=== PATIENT | male | born 1950 | race African-American/Black ===

== ENCOUNTER 2016-05-23 15:43 | Emergency (ER) | payer MEDICARE, MEDICAID ==
[~2016-05-23] VITALS: Ht 177.8 cm; Wt 104.0 kg
[~2016-05-23 15:43] MED LIST: CLONIDINE0.1 MG PO; NAPROSYN500 MG PO
[2016-05-23 16:44] LABS: IMMATURE GRANULOCYTES 0.4 % (0.0-1.0); MEAN CELL VOLUME 88.4 fL CALC (80.0-100.0); MEAN CORPUSCULAR HGB 29.5 pG CALC (26.0-32.0); MEAN CORPUSCULAR HGB CONC 33.3 g/L CALC (32.0-36.0); NEUT# 3.31 thou/uL (1.82-7.42); RED BLOOD COUNT 5.09 mill/uL (4.70-6.10); RED CELL DISTRI WIDTH 13.9 % (11.5-15.5)
[2016-05-23 16:58] LABS: ALBUMIN 4.3 g/dL (3.2-5.0); ALKALINE PHOSPHATASE 67 u/l (38-126); ANION GAP 15 (6-22 (CALC)); BILIRUBIN, TOTAL 0.7 mg/dL (0.0-1.4); BUN 11 mg/dL (8-23); BUN/CREATININE RATIO 10 (12-20 (CALC)); CALCIUM 9.9 mg/dL (8.4-10.2); CARBON DIOXIDE 25 mmol/l (22-30); CHLORIDE 105 mmol/l (95-108); CREATININE 1.1 mg/dL (0.7-1.3); GFR > 60 ML/MIN (>=60 (CALC)); GFR FOR AFR.AMER. > 60 ML/MIN (>=60 (CALC)); GLUCOSE 101 mg/dL (82-115); SGOT/AST 30 u/l (19-48); SGPT/ALT 31 u/l (11-66); SODIUM 141 mmol/l (137-146)
[2016-05-23 17:09] LABS: MYOGLOBIN 85 ng/mL (0 - 121)
[2016-05-23 18:32] LABS: URINE BILIRUBIN - DIPSTICK NEGATIVE (NEGATIVE); URINE BLOOD DIPSTICK NEGATIVE (NEGATIVE); URINE CLARITY CLEAR; URINE COLOR YELLOW; URINE GLUCOSE - DIPSTICK NEGATIVE (NEGATIVE); URINE KETONE NEGATIVE (NEGATIVE); URINE LEUK ESTERASE NEGATIVE (NEGATIVE); URINE NITRITE - DIPSTICK NEGATIVE (Negative); URINE PH 5.5 (4.5-8.0); URINE PROTEIN - DIPSTICK NEGATIVE (NEG-TRACE); URINE SPECIFIC GRAVITY 1.015; URINE UROBILINOGEN - DIPSTICK 0.2 E.U./dL (0.2)
[2016-05-23 18:38] LABS: BARBITURATES NEGATIVE (NEGATIVE); COCAINE NEGATIVE (NEGATIVE); METHADONE NEGATIVE (NEGATIVE); OXCYCODONE NEGATIVE (NEGATIVE); TETRAHYDROCANNABIONOL NEGATIVE (NEGATIVE); TRICYLIC ANTIDEPRESSANTS NEGATIVE (NEGATIVE)
[2016-05-23] MEDS ORDERED: CLONIDINE0.1 MG PO (18:52)
[2016-05-23 19:08] VITALS: BP 175/98
== END 2016-05-23 19:21 | disposition home or self-care (01) ==
LOC: ED 15:43
PROVIDERS: Emergency Medicine
DX: I10 Essential (primary) hypertension (principal); F17.210 Nicotine dependence, cigarettes, uncomplicated; R94.31 Abnormal electrocardiogram [ECG] [EKG]; R42 Dizziness and giddiness; R20.0 Anesthesia of skin; Z91.14 Patient's other noncompliance with medication regimen

== ENCOUNTER 2016-06-08 18:56 | Inpatient (IN) | payer MEDICARE, MEDICAID ==
[~2016-06-08] VITALS: Ht 177.8 cm; Wt 84.7 kg
[2016-06-08 19:47] LABS: HEMATOCRIT 46.5 % (39.0-50.0); HEMOGLOBIN 15.5 g/dl (14.0-18.0); IMMATURE GRANULOCYTES 0.2 % (0.0-1.0); MEAN CELL VOLUME 89.1 fL CALC (80.0-100.0); MEAN CORPUSCULAR HGB 29.7 pG CALC (26.0-32.0); MEAN CORPUSCULAR HGB CONC 33.3 g/L CALC (32.0-36.0); NEUT# 5.71 thou/uL (1.82-7.42); RED BLOOD COUNT 5.22 mill/uL (4.70-6.10); RED CELL DISTRI WIDTH 13.4 % (11.5-15.5)
[2016-06-08 19:52] LABS: ALBUMIN 4.4 g/dL (3.2-5.0); ALKALINE PHOSPHATASE 84 u/l (38-126); ANION GAP 17 (6-22 (CALC)); BILIRUBIN, TOTAL 1.1 mg/dL (0.0-1.4); BUN 13 mg/dL (8-23); BUN/CREATININE RATIO 11 (12-20 (CALC)); CALCIUM 10.1 mg/dL (8.4-10.2); CARBON DIOXIDE 25 mmol/l (22-30); CHLORIDE 103 mmol/l (95-108); CREATININE 1.2 mg/dL (0.7-1.3); GFR > 60 ML/MIN (>=60 (CALC)); GFR FOR AFR.AMER. > 60 ML/MIN (>=60 (CALC)); GLUCOSE 107 mg/dL (82-115); SGOT/AST 25 u/l (19-48); SGPT/ALT 37 u/l (11-66); SODIUM 140 mmol/l (137-146); TOTAL PROTEIN 8.3 g/dL (6.3-8.2)
[2016-06-08 20:03] LABS: MYOGLOBIN 84 ng/mL (0 - 121)
[2016-06-08 20:36] LABS: URINE BILIRUBIN - DIPSTICK NEGATIVE (NEGATIVE); URINE BLOOD DIPSTICK NEGATIVE (NEGATIVE); URINE CLARITY CLEAR; URINE COLOR YELLOW; URINE GLUCOSE - DIPSTICK NEGATIVE (NEGATIVE); URINE KETONE NEGATIVE (NEGATIVE); URINE LEUK ESTERASE NEGATIVE (NEGATIVE); URINE NITRITE - DIPSTICK NEGATIVE (Negative); URINE PROTEIN - DIPSTICK NEGATIVE (NEG-TRACE); URINE UROBILINOGEN - DIPSTICK 0.2 E.U./dL (0.2)
[2016-06-08 21:04] LABS: BARBITURATES NEGATIVE (NEGATIVE); COCAINE NEGATIVE (NEGATIVE); METHADONE NEGATIVE (NEGATIVE); OXCYCODONE NEGATIVE (NEGATIVE); TETRAHYDROCANNABIONOL NEGATIVE (NEGATIVE); TRICYLIC ANTIDEPRESSANTS NEGATIVE (NEGATIVE)
[2016-06-08 23:05] VITALS: BP 173/89
[2016-06-09 02:33] VITALS: BP 135/83
[2016-06-09 03:55] VITALS: BP 172/88
[2016-06-09 10:14] VITALS: BP 166/81
[2016-06-09 16:15] VITALS: BP 143/101
[2016-06-09 19:00] VITALS: BP 148/98
[2016-06-09 23:48] VITALS: BP 130/88
[2016-06-10 04:35] VITALS: BP 127/81
[2016-06-10 07:30] VITALS: BP 135/93
[2016-06-10 11:01] VITALS: BP 131/92
[2016-06-10] MEDS ORDERED: CLONIDINE0.1 MG PO (11:08)
[2016-06-10] MEDS ORDERED: HYZAAR1 TA2 PO ×2 (11:10→12:53)
[2016-06-10] MEDS ORDERED: LIPITOR20 M1 PO (11:11)
[2016-06-10] MEDS ORDERED: AMLODIPINE5 MG PO (11:12)
[2016-06-10] MEDS ORDERED: ADLT ASA LOW81 MG PO (11:47)
== END 2016-06-10 12:25 | disposition home or self-care (01) | DRG 69 ==
LOC: ENPENDDIS → ED 18:56 → ED-I 21:40 → ED 22:05 → MS2 22:06
PROVIDERS: Emergency Medicine; ADMIT Internal Medicine; ATTEND Internal Medicine
DX: G45.9 Transient cerebral ischemic attack, unspecified (principal); I10 Essential (primary) hypertension; I16.0 Hypertensive urgency; Z87.891 Personal history of nicotine dependence; Z91.14 Patient's other noncompliance with medication regimen
CPT/HCPCS: J1650

== ENCOUNTER 2018-06-21 11:42 | Emergency (ER) | payer MEDICARE, MEDICAID ==
[~2018-06-21] VITALS: Ht 177.8 cm; Wt 85.0 kg
[~2018-06-21 11:42] MED LIST changes: +ADLT ASA LOW81 MG PO; +AMLODIPINE5 MG PO; +HYZAAR1 TA2 PO; +LIPITOR20 M1 PO
[2018-06-21 13:10] VITALS: BP 141/100
== END 2018-06-21 13:08 | disposition home or self-care (01) ==
LOC: ED 11:42
DX: S50.02XA Contusion of left elbow, initial encounter (principal); S50.312A Abrasion of left elbow, initial encounter; V13.4XXA Pedal cycle driver injured in collision with car, pick-up truck or van in traffic accident, initial encounter; Y93.55 Activity, bike riding; Y92.410 Unspecified street and highway as the place of occurrence of the external cause

== ENCOUNTER 2018-06-29 13:14 | Emergency (ER) | payer MEDICARE, MEDICAID ==
[~2018-06-29] VITALS: Ht 177.8 cm; Wt 75.0 kg
[2018-06-29 14:16] LABS: HEMATOCRIT 43.7 % (39.0-50.0); HEMOGLOBIN 14.4 g/dl (14.0-18.0); IMMATURE GRANULOCYTES 0.3 % (0.0-5.0); MEAN CORPUSCULAR HGB 30.3 pG CALC (26.0-32.0); NEUT# 5.03 thou/uL (1.82-7.42); RED BLOOD COUNT 4.75 mill/uL (4.70-6.10); RED CELL DISTRI WIDTH 14.7 % (11.5-15.5)
[2018-06-29 14:25] LABS: URINE BLOOD DIPSTICK NEGATIVE (NEGATIVE); URINE COLOR YELLOW; URINE GLUCOSE - DIPSTICK NEGATIVE (NEGATIVE); URINE KETONE NEGATIVE (NEGATIVE); URINE LEUK ESTERASE NEGATIVE (NEGATIVE); URINE NITRITE - DIPSTICK NEGATIVE (Negative); URINE PH 5.5 (4.5-8.0); URINE PROTEIN - DIPSTICK TRACE mg/dL (NEG-TRACE); URINE SPECIFIC GRAVITY >=1.030
[2018-06-29 14:28] LABS: BARBITURATES NEGATIVE (NEGATIVE); COCAINE NEGATIVE (NEGATIVE); METHADONE NEGATIVE (NEGATIVE); OXCYCODONE NEGATIVE (NEGATIVE); TETRAHYDROCANNABIONOL NEGATIVE (NEGATIVE); TRICYLIC ANTIDEPRESSANTS NEGATIVE (NEGATIVE); URINE BILIRUBIN - DIPSTICK NEGATIVE (NEGATIVE)
[2018-06-29 14:35] LABS: ALKALINE PHOSPHATASE 63 u/l (38-126); ANION GAP 12 (6-22 (CALC)); BUN 17 mg/dL (8-23); BUN/CREATININE RATIO 19 (12-20 (CALC)); CARBON DIOXIDE 26 mmol/l (22-30); CHLORIDE 105 mmol/l (95-108); CREATININE 0.9 mg/dL (0.7-1.3); GFR > 60 ML/MIN (>=60 (CALC)); GFR FOR AFR.AMER. > 60 ML/MIN (>=60 (CALC)); LIPASE 66 u/l (23-300); SODIUM 139 mmol/l (137-146); TOTAL PROTEIN 7.2 g/dL (6.3-8.2)
[2018-06-29 14:38] LABS: ETHYL ALCOHOL 0 mg/dl (0-30); SGOT/AST 58 u/l (19-48)
[2018-06-29 15:05] LABS: TSH, 3RD GENERATION 2.28 uIU/mL (0.47 - 4.68)
[2018-06-29 16:44] VITALS: BP 141/81
== END 2018-06-29 16:55 | disposition home or self-care (01) ==
LOC: ED 13:14
PROVIDERS: Emergency Medicine
DX: R44.0 Auditory hallucinations (principal); I10 Essential (primary) hypertension; E78.5 Hyperlipidemia, unspecified; F17.210 Nicotine dependence, cigarettes, uncomplicated; Z86.73 Personal history of transient ischemic attack (TIA), and cerebral infarction without residual deficits; R41.82 Altered mental status, unspecified

== ENCOUNTER 2018-07-06 13:36 | Inpatient (IN) | payer MEDICARE, MEDICAID ==
[2018-07-06] VITALS (7 sets, daily range): BP systolic 144–178; BP diastolic 63–99
[~2018-07-06] VITALS: Ht 172.7 cm; Wt 85.0 kg
--- NOTE | 2018-07-06 13:40 | NUR ---
PT TO ROOM WITH A LIMPING GAIT.
--- NOTE | 2018-07-06 14:00 | NUR ---
PER DR HARRIS HELD LOVENOX AND PO MED PT MAY BE SURGICAL CANDIDATE.
--- NOTE | 2018-07-06 14:13 | NUR ---
PT TRANSFERED TO ROOM 14 FOR FURTHER TX, CARE ASSUMED. PT ALERT AND CONVERSIVE IN NO DISTRESS. ALL MONITORS ASSESSED. SKIN WARMA ND DRY.
[2018-07-06 14:25] LABS: HEMATOCRIT 42.1 % (39.0-50.0); HEMOGLOBIN 13.6 g/dl (14.0-18.0); IMMATURE GRANULOCYTES 0.3 % (0.0-5.0); MEAN CELL VOLUME 92.3 fL CALC (80.0-100.0); MEAN CORPUSCULAR HGB 29.8 pG CALC (26.0-32.0); MEAN CORPUSCULAR HGB CONC 32.3 g/L CALC (32.0-36.0); NEUT# 4.04 thou/uL (1.82-7.42); RED BLOOD COUNT 4.56 mill/uL (4.70-6.10); RED CELL DISTRI WIDTH 14.5 % (11.5-15.5)
[2018-07-06 14:47] LABS: ALBUMIN 3.7 g/dL (3.2-5.0); ALKALINE PHOSPHATASE 74 u/l (38-126); ANION GAP 12 (6-22 (CALC)); BUN 16 mg/dL (8-23); BUN/CREATININE RATIO 16 (12-20 (CALC)); CARBON DIOXIDE 24 mmol/l (22-30); CHLORIDE 108 mmol/l (95-108); GFR > 60 ML/MIN (>=60 (CALC)); GFR FOR AFR.AMER. > 60 ML/MIN (>=60 (CALC)); POTASSIUM 4.3 mmol/l (3.5-5.1); SGOT/AST 31 u/l (19-48); SODIUM 140 mmol/l (137-146); TOTAL PROTEIN 7.1 g/dL (6.3-8.2)
[2018-07-06 14:53] LABS: BILIRUBIN, TOTAL 0.5 mg/dL (0.0-1.4)
--- NOTE | 2018-07-06 14:59 | NUR ---
ALL METAL REMOVED FROM PT AND TRANSPORTED TO MRI BY
--- NOTE | 2018-07-06 15:00 | NUR ---
PER DR KIMBERLY ROMERO SQ AND PO PROTONIX HELD D/T POSSIBLE SURGICAL CANDIDATE
--- NOTE | 2018-07-06 15:40 | NUR ---
PT RETURNED FROM MRI IN NO DISTRESS.MONITORS REASSESSED
--- NOTE | 2018-07-06 16:05 | NUR ---
DR BRASHER AT BEDSIDE TO ASSESS PT. DISCUSSED POC AND SURGERY WITH PT. PT AGREEABLE. MARKED PEDAL PULSE TO DORSUM LT FOOT.
--- NOTE | 2018-07-06 16:52 | NUR ---
BEDSIDE REPORT TO LIV HICKEY FROM OR. PT TRANSFERED SELF TO STRETCHER WITHOUT DIFFICULTY. PT LEFT WITH IV FLUIDS AND ABT INFUSING IN CARE OF OR STAFF
[2018-07-06 17:08] LABS: BARBITURATES NEGATIVE (NEGATIVE); COCAINE NEGATIVE (NEGATIVE); METHADONE NEGATIVE (NEGATIVE); OXCYCODONE NEGATIVE (NEGATIVE); TETRAHYDROCANNABIONOL NEGATIVE (NEGATIVE); TRICYLIC ANTIDEPRESSANTS NEGATIVE (NEGATIVE)
--- NOTE | 2018-07-06 17:10 | NUR ---
HELD LOVENOX AND PO MED PER DR HARRIS D/T POSSIBLE PENDING SURGERY
--- NOTE | 2018-07-06 17:20 | NUR ---
CALLED REPORT TO [facility]SHBY MS AND INFORMED OF TRANSPORT TO SURGERY AND FACT THAT LOVENOX AND PO MEDS WERE HELD PER DR HARRIS.
--- NOTE | 2018-07-06 18:26 | NUR ---
PT ARRIVED TO FLOOR VIA STRETCHER ACCOMPANIED BY OR STAFF MEMBER;PT RE-POSITIONED INTO HOSPITAL BED WITH 1 PERSON ASSIST;A&O X3, ORIENTED TO ROOM AND CALL LIGHT SYSTEM;PT IS A POST OP LEFT FOOT THIRD TOE AMPUTEE BY ;PT EDUCATED ON NON-WEIGHT BEARING STATUS AND VERBALIZES UNDERSTANDING;PT DENIES ANY PAIN OR NEEDS,PAIN SCALE AND REPORTING EDUCATED;RESPIRATIONS EVEN AND UNLABORED ON RA;IV FLUIDS INFUSING WELL TO #18G TO LAC PER ORDER;PT DENIES ANY ADDITIONAL NEEDS AT THIS TIME;ENCOURAGED PT TO CALL FOR ASSISTANCE IF NEEDED;FALL PRECAUTIONS IN PLACE WITH CALL LIGHT IN REACH;WILL CONTINUE TO MONITOR
--- NOTE | 2018-07-06 19:49 | NUR ---
ADMISSION ASSESSMENT COMPLETED; SURGICAL DRESSING INTACT TO LEFT FOOT WITH MANDEEP WRAP IN PLACE UNABLE TO PALPATE PEDAL PULSE; POPLITEAL PULSE PRESENT. SCD APPLIED TO RLE. PT. EDUCATED ON NEED TO CALL FOR ALL OOB NEEDS AND THAT HE IS NWB AND WILL NEED TO CALL; VERBALIZES UNDERSTANDING. EDUCATED ON POC AND INCENTIVE SPIROMETER; C/O BURNING PAIN TO LEFT FOOT 5/10 AND PT. REPORTS TEETH HURT AND IS MEDICATED WITH ORDERED TRAMADOL; WILL REASSESS. PT. IS ABLE TO PULL 1000 AND GOAL IS SET TO 1500. ENCOURAGED TO CALL FOR ANY NEEDS. CALL LIGHT IS IN REACH.
--- NOTE | 2018-07-06 22:00 | NUR ---
PT. RESTING IN BED WITH NO DISTRESS NOTED; DENIES NEEDS OR PAIN MEDICATION AT THIS TIME. SNACK PROVIDED. IV SITE PATENT. LEFT FOOT DRESSING REMAINS CDI AND EXTREMETY WARM TO TOUCH WITH GOOD CAPILARRY REFILL NOTED. URINAL AT BEDSIDE. CALL LIGHT IS IN REACH.
--- NOTE | 2018-07-06 23:35 | NUR ---
PT. C/O TEETH AND LEFT FOOT PAIN 10/10 AND MEDICATED WITH ORDERED PERCOCET; WILL REASSESS. PT. DENIES FURTHER NEEDS. PO FLUIDS OFFERED. CALL LIGHT IS IN REACH.
[2018-07-07] VITALS (7 sets, daily range): BP systolic 131–182; BP diastolic 76–89
--- NOTE | 2018-07-07 01:55 | NUR ---
PT. RESTING IN BED WITH NO DISTRESS NOTED; DENIES NEEDS/PAIN. DRESSING REMAINS CDI TO LEFT FOOT AND CAP REFILL BRISK AND PT. IS ABLE TO MOVE TOES TO LEFT FOOT. ENCOURAGED TO CALL FOR ANY NEEDS. CALL LIGHT IS IN REACH. WILL CONTINUE TO MONITOR.
--- NOTE | 2018-07-07 04:29 | NUR ---
PT. C/O LEFT FOOT BURNING PAIN 10/10 AND MEDICATED WITH ORDERED PERCOCET; WILL REASSESS; PO FLUIDS OFFERED. CALL LIGHT IS IN REACH. WILL CONTINUE TO MONITOR.
[2018-07-07 04:59] LABS: HEMATOCRIT 38.9 % (39.0-50.0); HEMOGLOBIN 12.8 g/dl (14.0-18.0); IMMATURE GRANULOCYTES 0.4 % (0.0-5.0); MEAN CELL VOLUME 92.2 fL CALC (80.0-100.0); MEAN CORPUSCULAR HGB 30.3 pG CALC (26.0-32.0); MEAN CORPUSCULAR HGB CONC 32.9 g/L CALC (32.0-36.0); NEUT# 4.76 thou/uL (1.82-7.42); RED BLOOD COUNT 4.22 mill/uL (4.70-6.10); RED CELL DISTRI WIDTH 14.5 % (11.5-15.5)
[2018-07-07 05:12] LABS: ALKALINE PHOSPHATASE 63 u/l (38-126); AMYLASE 59 u/l (30-110); ANION GAP 11 (6-22 (CALC)); BILIRUBIN, TOTAL 0.4 mg/dL (0.0-1.4); BUN 10 mg/dL (8-23); BUN/CREATININE RATIO 11 (12-20 (CALC)); CARBON DIOXIDE 23 mmol/l (22-30); CHLORIDE 108 mmol/l (95-108); CREATININE 0.9 mg/dL (0.7-1.3); GFR > 60 ML/MIN (>=60 (CALC)); GFR FOR AFR.AMER. > 60 ML/MIN (>=60 (CALC)); LIPASE 30 u/l (23-300); MAGNESIUM 2.1 mg/dL (1.6-2.3); POTASSIUM 4.1 mmol/l (3.5-5.1); SGOT/AST 20 u/l (19-48); SODIUM 138 mmol/l (137-146)
--- NOTE | 2018-07-07 05:35 | NUR ---
PT. REPORTS PAIN IS NOW 8/10, MEDICATED WITH ORDERED PRN DILAUDID AND B/P REASSESSED AND NOW DOWN TO 131/83. DENIES FURTHER NEEDS. CALL LIGHT IS IN REACH. DRESSING TO LEFT FOOT REMAINS CDI.
--- NOTE | 2018-07-07 06:10 | NUR ---
IV SITE PATENT AND SL. FLUSHED WITH NS. PT. REPORTS PAIN DOWN TO 2/10.
--- NOTE | 2018-07-07 07:35 | NUR ---
ASSESSMENT IS COMPLETED: IV SITE IS FREE FROM REDNESS OR EDEMA. HR IS REG,PULSES ARE STRONG X4, ABD IS SOFT WITH ACTIVE BS. BREATH SOUNDS ARE CLEAR, BILATERALLY. LEFT FOOT HAS A DRESSING THAT IS CDI. NO DRAINAGE NOTED. CONTINUE TO OSBERVE AND MONITOR.
--- NOTE | 2018-07-07 08:05 | NUR ---
PLACED A CALL TO . PT IS VOMITING NO MEDICATION ORDERED AT THIS TIME.
--- NOTE | 2018-07-07 09:00 | NUR ---
RECEIVED A CALL FROM DR. MTZ NEW ORDERS FOR NAUSEA MEDICATION
--- NOTE | 2018-07-07 12:15 | NUR ---
PT IS RELAXING IN BED WITH NO DISTRESS NOTED. IV SITE IS FREE FROM REDNESS OR EDEMA.
--- NOTE | 2018-07-07 13:15 | NUR ---
BP NOW 123/69
--- NOTE | 2018-07-07 13:40 | NUR ---
CARE RELINQUISHED FROM DAYANARA REDDY;INTRODUCED SELF TO PT AND POC DISCUSSED;PT RESTING IN SEMI FOWLERS POSITION;RESPIRATIONS EVEN AND UNLABORED ON RA;IV FLUIDS INFUSING TO LAC WITH EASE;PT DENIES ANY CURRENT PAIN OR NEEDS;ENCOURAGED TO CALL FOR ASSISTANCE IF NEEDED;CALL LIGHT IN REACH;WILL CONTINUE TO MONITOR
--- NOTE | 2018-07-07 15:30 | NUR ---
PT RESTING IN SEMI FOWLERS POSITION WATCHING TV;RESPIRATIONS EVEN AND UNLABORED ON RA;PT DENIES ANY CURRENT PAIN OR DISCOMFORTS;DRESSING TO LEFT FOOT REMAINS CDI;ENCOURAGED ELEVATION ON A PILLOW AND ICE PACK PROVIDED;IV SITE TO LAC PATENT;DIET SODA PROVIDED PER REQUEST;PT DENIES ANY ADDITIONAL NEEDS AT THIS TIME AND IS ENCOURAGED TO CALL FOR ASSISTANCE IF NEEDED;FALL PRECAUTIONS IN PLACE WITH CALL LIGHT IN REACH;WILL CONTINUE TO MONITOR
--- NOTE | 2018-07-07 18:50 | NUR ---
REPORT FROM NATALIIA NICHOLE. PT SITTING UP AT BEDSIDE. PT DENIES ANY PAIN OR DISCOMFORT. NO DISTRESS NOTED. DRESSING NOTED TO LEFT FOOT CDI. IV SITE APPEARS HEALTHY. DISCUSSED POC. PT VERBALIZED UNDERSTANDING. CALL LIGHT WITHIN REACH. WILL CONTINUE TO MONITOR.
--- NOTE | 2018-07-07 21:51 | NUR ---
PT RESTING IN BED. LEFT FOOT ELEVATED ON PILLOWS. STATES PAIN LEVEL DOWN TO 8/10 AFTER PO PAIN MEDICATION. CALL LIGHT WITHIN REACH. WILL CONTINUE TO MONITOR.
[2018-07-08] VITALS (9 sets, daily range): BP systolic 143–165; BP diastolic 64–100
--- NOTE | 2018-07-08 00:10 | NUR ---
IV ABT INFUSING PT TOLERATING WELL. NO S/S OF ADVERSE REACTION NOTED. PT MEDICATED FOR PAIN AT THIS TIME. CALL LIGHT WITHIN REACH. WILL CONTINUE TO MONITOR.
--- NOTE | 2018-07-08 04:54 | NUR ---
PT RESTING IN BED WITH EYES CLOSED. NO S/S OF PAIN OR DISCOMFORT NOTED. CALL LIGHT WITHIN REACH. WILL CONTINUE TO MONITOR.
[2018-07-08 05:17] LABS: HEMATOCRIT 39.6 % (39.0-50.0); IMMATURE GRANULOCYTES 0.2 % (0.0-5.0); MEAN CELL VOLUME 91.7 fL CALC (80.0-100.0); MEAN CORPUSCULAR HGB 30.1 pG CALC (26.0-32.0); MEAN CORPUSCULAR HGB CONC 32.8 g/L CALC (32.0-36.0); NEUT# 4.08 thou/uL (1.82-7.42); RED BLOOD COUNT 4.32 mill/uL (4.70-6.10); RED CELL DISTRI WIDTH 14.5 % (11.5-15.5)
[2018-07-08 05:19] LABS: ALBUMIN 2.9 g/dL (3.2-5.0); ALKALINE PHOSPHATASE 59 u/l (38-126); ANION GAP 11 (6-22 (CALC)); BILIRUBIN, TOTAL 0.4 mg/dL (0.0-1.4); BUN 9 mg/dL (8-23); BUN/CREATININE RATIO 9 (12-20 (CALC)); CARBON DIOXIDE 24 mmol/l (22-30); CHLORIDE 108 mmol/l (95-108); GFR > 60 ML/MIN (>=60 (CALC)); GFR FOR AFR.AMER. > 60 ML/MIN (>=60 (CALC)); MAGNESIUM 2.2 mg/dL (1.6-2.3); SGOT/AST 16 u/l (19-48); SODIUM 139 mmol/l (137-146); TOTAL PROTEIN 5.9 g/dL (6.3-8.2)
--- NOTE | 2018-07-08 07:15 | NUR ---
REPORT RECEIVED FROM DAYANARA CAPONE;PT RESTING IN SEMI FOWLERS POSITION;INTRODUCED SELF TO PT AND POC DISCUSSED;RESPIRATIONS EVEN AND UNLABORED ON RA;PT DENIES ANY CURRENT PAIN OR NEEDS;ENCOURAGED TO KEEP LEFT FOOT ELEVATED ON A PILLOW;FALL PRECAUTIONS IN PLACE WITH CALL LIGHT IN REACH;WILL CONTINUE TO MONITOR
--- NOTE | 2018-07-08 08:30 | NUR ---
PT RESTING IN SEMI FOWLERS POSITION,A&O X3;VS OBTAINED AND ASSESSMENT COMPLETED;PT IS POST OP LEFT THIRD TOE AMPUTEE 07/06/18;PT REPORTS PAIN TO LEFT FOOT RATING 7/10 ON THE PAIN SCALE AND REQUESTS PAIN MEDICATION,PT TO BE MEDICATED WITH PRN PERCOCET 10/325MG PO;RESPIRATIONS EVEN AND UNLABORED ON RA;PT INSTRUCTED TO USE I.S. X10 PER HOUR;ABDOMEN SOFT ON PALPATION AND ACTIVE IN ALL 4 QUADRANTS;UNABLE TO PALPATE LEFT PEDAL PULSE DUE TO MANDEEP DRESSING IN PLACE;RIGHT PEDAL PULSE STRONG;LEFT FOOT MANDEEP WRAP DRESSING CDI,ENCOURAGED ELEVATION;#18G TO LAC FLUSHED AND PATENT,SITE APPEARS HEALTHY;PT DENIES ANY ADDITIONAL NEEDS AT THIS TIME AND IS ENCOURAGED TO CALL FOR ASSISTANCE IF NEEDED;CALL LIGHT IN REACH;WILL CONTINUE TO MONITOR
--- NOTE | 2018-07-08 10:20 | NUR ---
AT BEDSIDE DISCUSSING POC.
--- NOTE | 2018-07-08 11:50 | NUR ---
PT RESTING IN BED WATCHING TV;RESPIRATIONS EVEN AND UNLABORED ON RA;PT DENIES ANY CURRENT NEEDS;HYDROCHLOROTHIAZIDE AND LACTULOSE ADMINISTERED PER ORDER;IV SITE TO LAC REMAINS PATENT;RE-ENCOURAGED ELEVATION OF LLE AND PT VERBALIZES UNDERSTANDING;ENCOURAGED TO CALL FOR ASSISTANCE IF NEEDED;CALL LIGHT IN REACH;WILL CONTINUE TO MONITOR
--- NOTE | 2018-07-08 15:25 | NUR ---
PT RESTING IN BED, ANXIOUS;CURRENT BP 165/100 HR 73;RESPIRATIONS EVEN AND UNLABORED ON RA;PT REPORTS LEFT FOOT PAIN RATING 10/10 ON THE PAIN SCALE AND REQUESTS PAIN MEDICATION, PT TO BE MEDICATED WITH PRN DILAUDID 0.5MG IVP;RE-ENCOURAGED ELEVATION OF LEFT FOOT AND ICE PACK PROVIDED;IV SITE TO LAC REMAINS PATENT;SCHEDULED LACTULOSE ADMINISTERED AT THIS TIME;PT INSTRUCTED TO CALL FOR ASSISTANCE IF NEEDED;FALL PRECAUTIONS IN PLACE WITH CALL LIGHT IN REACH;WILL CONTINUE TO MONITOR
--- NOTE | 2018-07-08 18:50 | NUR ---
REPORT FROM NATALIIA NICHOLE. PT RESTING IN BED WITH EYES OPEN. PT DENIES ANY PAIN OR DISCOMFORT. NO DISTRESS NOTED. DRESSING NOTED TO LEFT FOOT CDI. IV SITE APPEARS HEALTHY. DISCUSSED POC. PT VERBALIZED UNDERSTANDING. CALL LIGHT WITHIN REACH. WILL CONTINUE TO MONITOR.
--- NOTE | 2018-07-08 22:01 | NUR ---
PT UP TO BSC. LARGE LOOSE BM AT THIS TIME. ASSISTED BACK TO BED. LEFT LEG ELEVATED ON PILLOWS. DENIES ANY PAIN AT THIS TIME. CALL LIGHT WITHIN REACH. WILL CONTINUE TO MONITOR.
--- NOTE | 2018-07-09 02:42 | NUR ---
PT RESTING IN BED WITH EYES CLOSED. NO DISTRESS NOTED. CALL LIGHT WITHIN REACH. WILL CONTINUE TO MONITOR.
[2018-07-09 04:43] VITALS: BP 155/90
[2018-07-09 05:07] LABS: HEMATOCRIT 40.2 % (39.0-50.0); HEMOGLOBIN 13.3 g/dl (14.0-18.0); IMMATURE GRANULOCYTES 0.3 % (0.0-5.0); MEAN CELL VOLUME 90.5 fL CALC (80.0-100.0); MEAN CORPUSCULAR HGB CONC 33.1 g/L CALC (32.0-36.0); NEUT# 4.56 thou/uL (1.82-7.42); RED BLOOD COUNT 4.44 mill/uL (4.70-6.10); RED CELL DISTRI WIDTH 14.4 % (11.5-15.5)
[2018-07-09 05:16] LABS: ALBUMIN 3.3 g/dL (3.2-5.0); ALKALINE PHOSPHATASE 64 u/l (38-126); ANION GAP 12 (6-22 (CALC)); BILIRUBIN, TOTAL 0.4 mg/dL (0.0-1.4); BUN 9 mg/dL (8-23); BUN/CREATININE RATIO 11 (12-20 (CALC)); CARBON DIOXIDE 24 mmol/l (22-30); CHLORIDE 106 mmol/l (95-108); CREATININE 0.9 mg/dL (0.7-1.3); GFR > 60 ML/MIN (>=60 (CALC)); GFR FOR AFR.AMER. > 60 ML/MIN (>=60 (CALC)); MAGNESIUM 2.1 mg/dL (1.6-2.3); POTASSIUM 4.2 mmol/l (3.5-5.1); SGOT/AST 19 u/l (19-48); SODIUM 138 mmol/l (137-146); TOTAL PROTEIN 6.4 g/dL (6.3-8.2)
--- NOTE | 2018-07-09 05:26 | NUR ---
PT MEDICATED FOR PAIN WITH PRN PERCOCET. WILL CONTINUE MONITOR.
[2018-07-09 08:30] VITALS: BP 123/84
--- NOTE | 2018-07-09 08:30 | NUR ---
PT SITTING UP IN BED WATCHING TV; RESP EVEN AND UNLABORED ON ROOM AIR; ASSESSMENT COMPLETED; #20G LAC, ROCEPHIN INFUSING AT THE MOMENT; IVS APPEARS HEALTHY; DRESSING TO LT FOOT CDI, SECURE WITH MANDEEP WRAP; ENCOURAGE LEG ELEVATION; C/O OF NO PAIN; REPORT SEVERAL BM TODAY; DEMONSTRATE CORRECT USE OF IS, ENCOURAGE 10X EVERY HR WHILE AWAKE, VERBALIZED UNDERSTANDING; CALL CLEMONS, BED SIDE COMMODE AND URINAL IN REACH; SAFETY PRECAUTION REINFORCE; WILL CONTINUE TO MONITOR.
--- NOTE | 2018-07-09 10:45 | NUR ---
DR MTZ AT BEDSIDE TO DISCUSS POC
--- NOTE | 2018-07-09 11:39 | NUR ---
PT SITTING UP IN BED EATING LUNCH AND WATCHING TV; RESP EVEN AND UNLABORED ON ROOM AIR; LEGS ELEVATED; CALL CLEMONS IN REACH; VOICE NO CONCERNS; WILL CONTINUE TO MONITOR.
[2018-07-09] MEDS ORDERED: TRAMADOL HCL50 MG PO (12:44)
[2018-07-09] MEDS ORDERED: LOSARTAN POT50 MG PO (12:44)
[2018-07-09] MEDS ORDERED: HYDROCHLOROT12.5 MG PO (12:44)
[2018-07-09] MEDS ORDERED: PANTOPRAZOLE SO40 M1 PO (12:45)
[2018-07-09] MEDS ORDERED: ROCEPHIN 1 GM1 GM IM (12:47)
[2018-07-09 15:03] VITALS: BP 142/88
--- NOTE | 2018-07-09 15:47 | NUR ---
CALL MADE TO DR BRASHER REGARDING DRESSING CHANGE, HE ORDER NOT TO CHANGE DRESSING, WILL SEE PT IN SEVEN DAYS AT HIS OFFICE; REPORT CALLED IN TO CARLOS AT [facility].
--- NOTE | 2018-07-09 16:40 | NUR ---
PT BEING TRF TO [facility] VIA W/C IN STABLE CONDITION; ALL BELONGINGS SENT;
== END 2018-07-09 16:40 | DRG 256 ==
LOC: ED 13:36 → ED-I 14:32 → ED 14:48 → MS2 14:49
PROVIDERS: Nurse Anesthetist, Certified Registered; ADMIT Internal Medicine Nephrology; ATTEND Internal Medicine Nephrology
PROC: 0Y6U0Z0 Detachment at Left 3rd Toe, Complete, Open Approach (ICD-10-PCS; principal; 2018-07-06)
PROC: 3E0234Z Introduction of Serum, Toxoid and Vaccine into Muscle, Percutaneous Approach (ICD-10-PCS; 2018-07-07)
DX: I96 Gangrene, not elsewhere classified (principal); M86.8X7 Other osteomyelitis, ankle and foot; L02.612 Cutaneous abscess of left foot; I73.9 Peripheral vascular disease, unspecified; S91.105A Unspecified open wound of left lesser toe(s) without damage to nail, initial encounter; I10 Essential (primary) hypertension; E78.5 Hyperlipidemia, unspecified; T46.5X6A Underdosing of other antihypertensive drugs, initial encounter; F17.210 Nicotine dependence, cigarettes, uncomplicated; B96.89 Other specified bacterial agents as the cause of diseases classified elsewhere; X58.XXXA Exposure to other specified factors, initial encounter; Y93.89 Activity, other specified; Y92.821 Forest as the place of occurrence of the external cause; Z86.73 Personal history of transient ischemic attack (TIA), and cerebral infarction without residual deficits; Z91.128 Patient's intentional underdosing of medication regimen for other reason; Z23 Encounter for immunization
CPT/HCPCS: A9579; J1650

== ENCOUNTER 2021-10-18 07:41 | Inpatient (IN) | payer MEDICARE, MEDICAID ==
[~2021-10-18] VITALS: Ht 167.6 cm; Wt 86.0 kg
[2021-10-18] VITALS (30 sets, daily range): BP systolic 124–196; BP diastolic 77–118
[~2021-10-18 07:41] MED LIST changes: +HYDROCHLOROT12.5 MG PO; +LOSARTAN POT50 MG PO; +PANTOPRAZOLE SO40 M1 PO; +ROCEPHIN 1 GM1 GM IM; +TRAMADOL HCL50 MG PO
--- NOTE | 2021-10-18 08:00 | NUR ---
PT ESCORTED FROM EMS STRETCHER TO BED AMBULATING WITH ASSISTANCE FOR EVAL OF FINGER NUMBNESS AND LEFT SIDED WEAKNESS X 2 DAYS.
[2021-10-18] MEDS ORDERED: BP MED (08:20)
[2021-10-18 08:47] LABS: MEAN CELL VOLUME 93.1 fL CALC (80.0-100.0); MEAN CORPUSCULAR HGB 29.7 pG CALC (26.0-32.0); MEAN CORPUSCULAR HGB CONC 31.9 g/dL CAL (32.0-36.0); NEUT# 3.02 thou/uL (1.82-7.42); RED BLOOD COUNT 5.35 mill/uL (4.70-6.10); RED CELL DISTRI WIDTH 16.6 % (11.5-15.5)
[2021-10-18 08:49] LABS: HEMATOCRIT 49.8 % (39.0-50.0); HEMOGLOBIN 15.9 g/dl (14.0-18.0)
--- NOTE | 2021-10-18 09:00 | NUR ---
Reassessment of patient completed. No distress noted.
[2021-10-18 09:13] LABS: ANION GAP 14 (6-22 (CALC)); BUN 15 mg/dL (8-23); BUN/CREATININE RATIO 12 (12-20 (CALC)); CARBON DIOXIDE 22 mmol/l (22-30); CHLORIDE 107 mmol/l (95-108); CREATININE 1.3 mg/dL (0.7-1.3); GFR FOR AFR.AMER. > 60 ML/MIN (>=60 (CALC)); GFR OTHER RACES 54 ML/MIN (>=60 (CALC)); POTASSIUM 4.5 mmol/l (3.5-5.1); SGOT/AST 33 u/l (19-48); SODIUM 139 mmol/l (137-146)
[2021-10-18 09:15] LABS: BILIRUBIN, TOTAL 0.9 mg/dL (0.0-1.4)
[2021-10-18 09:25] LABS: ALBUMIN 4.2 g/dL (3.2-5.0); ALKALINE PHOSPHATASE 112 u/l (38-126)
[2021-10-18 10:47] LABS: URINE BILIRUBIN - DIPSTICK NEGATIVE (NEGATIVE); URINE BLOOD DIPSTICK NEGATIVE (NEGATIVE); URINE COLOR YELLOW; URINE GLUCOSE - DIPSTICK NEGATIVE (NEGATIVE); URINE KETONE NEGATIVE (NEGATIVE); URINE LEUK ESTERASE NEGATIVE (NEGATIVE); URINE PROTEIN - DIPSTICK NEGATIVE (NEG-TRACE); URINE UROBILINOGEN - DIPSTICK 0.2 E.U./dL (0.2)
[2021-10-18 10:49] LABS: URINE NITRITE - DIPSTICK NEGATIVE (Negative)
--- NOTE | 2021-10-18 13:45 | NUR ---
RECEIVED BEDSIDE REPORT FROM ED NURSE. PT LAYING IN BED, SEMI FOWLERS, A&Ox3, RESPIRATIONS CLEAR, BOWEL SOUNDS ACTIVE x4, NO EDEMA OR SKIN ISSUES OBSERVED, TELE IN PLACE.
--- NOTE | 2021-10-18 15:52 | NUR ---
PT RESTING IN BED, A&Ox3, RESPIRATIONS EVEN AND UNLABORED. NO COMPLAINTS OF PAIN.
--- NOTE | 2021-10-18 18:10 | NUR ---
CALLED [facility], SPOKE WITH SISSY AND INFORMED OF NEURO CONSULT
--- NOTE | 2021-10-18 21:30 | NUR ---
PATIENT RESTING IN BED. DENIES ANY PAIN OR DISCOMFORT. AOX3. NIH ASSESSMENT COMPLETED. CIWA COMPLETED. PATIENT DENIES ANY PAIN OR DISCOMFORT AT THIS TIME. BANANA BAG INFUSING. ASSEMENT COMPLETED. PATIOENT HAS NO COMPLAINTS. FALL PRECAUTION IN PLACE. CALL CLEMONS WITHIN REACH.
[2021-10-19] VITALS (10 sets, daily range): BP systolic 154–196; BP diastolic 96–110
[2021-10-19 05:01] LABS: ANION GAP 10 (6-22 (CALC)); BUN 15 mg/dL (8-23); BUN/CREATININE RATIO 13 (12-20 (CALC)); CALCULATED LDLCHOLESTEROL 119 mg/dL (62-129 (CALC)); CARBON DIOXIDE 23 mmol/l (22-30); CHLORIDE 112 mmol/l (95-108); CHOLESTEROL HDL RATIO 4.5 (<4.4 (CALC)); CREATININE 1.1 mg/dL (0.7-1.3); GFR FOR AFR.AMER. > 60 ML/MIN (>=60 (CALC)); GFR OTHER RACES > 60 ML/MIN (>=60 (CALC)); HDL CHOLESTEROL 41 mg/dL (>=40); MAGNESIUM 2.1 mg/dL (1.6-2.3); POTASSIUM 4.1 mmol/l (3.5-5.1); SODIUM 141 mmol/l (137-146); TOTAL CHOLESTEROL 187 mg/dl (0-199); TOTAL TRIGLYCERIDES 135 mg/dl (30-149); VLDL CHOLESTROL 27 mg/dl (0-38 (CALC))
--- NOTE | 2021-10-19 08:00 | NUR ---
PT IN CHAIR AT BEDSIDE, ALERT AND ORIENTED X3, NIH-4, CIWA-1, PT HAS SOME DYSARTHRIA, AND DROOPING IN MOUTH, MILD WEAKNESS IN LEFT SIDE ARM AND LEG, PT STATES NO PAIN, PT ON RA RESP NON LABORED, CALL LIGHT IN REACH
--- NOTE | 2021-10-19 12:00 | NUR ---
PT IN CHAIR AT BEDSIDE, NO DISTRESS NOTED, NIH-4, CIWA-1, PT STATES NO PAIN, RESP NON LABORED ON RA, CALL LIGHT WITHIN REACH
--- NOTE | 2021-10-19 19:15 | NUR ---
PATIENT SITTING UP IN BED. ALERT AND ORIENTED. UNABLE TO UNDERSTAND AT TIMES. NIH DONE TOGETHER WITH DAY SHIFT NURSE IN ROOM. LEFT SIDED WEAKNESS. ASSESSMENT COMPLETE. DENIES PAIN OR SHORTNESS OF BREATH. REMINDED PATIENT TO ASK FOR ASSISTANCE. BED IN LOW POSITION. CALL LIGHT IN REACH.
[2021-10-20] VITALS (9 sets, daily range): BP systolic 146–208; BP diastolic 8–112
--- NOTE | 2021-10-20 00:40 | NUR ---
PATIENT RESTING IN BED WITH HEAD OF BED ELEVATED. NO COMPLAINTS OF PAIN. NO SIGNS OF DISTRESS. ABLE TO MAKE NEEDS KNOWN. BED REMAINS IN LOW POSITION. REMINDED PATIENT TO CALL FOR ASSISTANCE. CALL LIGHT IN REACH.
--- NOTE | 2021-10-20 04:30 | NUR ---
PATIENT RESTING IN BED WITH HEAD OF BED ELEVATED. NO SIGNS OF DISTRESS. NO COMPLAINTS OF PAIN. BED REMAINS IN LOW POSITION. CALL LIGHT IN REACH.
[2021-10-20 05:03] LABS: HEMATOCRIT 45.5 % (39.0-50.0); IMMATURE GRANULOCYTES 0.1 % (0.0-5.0); MEAN CELL VOLUME 91.2 fL CALC (80.0-100.0); MEAN CORPUSCULAR HGB 30.1 pG CALC (26.0-32.0); NEUT# 3.71 thou/uL (1.82-7.42); RED BLOOD COUNT 4.99 mill/uL (4.70-6.10); RED CELL DISTRI WIDTH 16.3 % (11.5-15.5)
[2021-10-20 05:24] LABS: ANION GAP 11 (6-22 (CALC)); BUN 12 mg/dL (8-23); BUN/CREATININE RATIO 11 (12-20 (CALC)); CARBON DIOXIDE 24 mmol/l (22-30); CHLORIDE 111 mmol/l (95-108); CREATININE 1.1 mg/dL (0.7-1.3); GFR FOR AFR.AMER. > 60 ML/MIN (>=60 (CALC)); GFR OTHER RACES > 60 ML/MIN (>=60 (CALC)); POTASSIUM 3.9 mmol/l (3.5-5.1); SODIUM 141 mmol/l (137-146)
--- NOTE | 2021-10-20 10:00 | NUR ---
PT SEEN AT REST IN THE BED, NO DISTRESS. ACCENT FROM [place] MAKES IT SLIGHTLY DIFFICULT TO UNDERSTAND HIM.
--- NOTE | 2021-10-20 14:38 | NUR ---
PT HAS HAD AN UNEVENTFUL DAY THUS FAR, SEEN AT REST IN THE BED IN NO DISTRESS. PT DOES HAVE CONTINUED NUMBNESS TO LEFT FINGERTIPS, VERY SLIGHT LEFT FACIAL DROOP.
--- NOTE | 2021-10-20 17:19 | NUR ---
PT SEEN BY TELENEUROLOGIST EARLIER THIS AFTERNOON, CLEARED FROM THAT PERSPECTIVE. PT REMAINS AT REST IN THE BED OR CHAIR, NO DISTRESS.
[2021-10-21 00:06] VITALS: BP 163/105
[2021-10-21 04:18] VITALS: BP 145/101
[2021-10-21 07:35] VITALS: BP 167/91
--- NOTE | 2021-10-21 09:55 | NUR ---
PT AWAKE, ALERT, AMBULATORY IN ROOM WITHOUT DIFFICULTY. PT SHOWERED. NO EVIDENCE OF ALCOHOL WITHDRAWAL.
[2021-10-21 11:38] VITALS: BP 170/109
--- NOTE | 2021-10-21 12:10 | NUR ---
PT SEEN BY DR LAROSE, WILL BE DISCHARGED TO REHAB WHEN AVAILABLE. NO CHANGE IN STATUS, SEEN AT REST IN THE BED.
[2021-10-21 16:12] VITALS: BP 158/109
--- NOTE | 2021-10-21 16:44 | NUR ---
PT OOB IN CHAIR AND AMBULATORY IN ROOM WITHOUT IMBALANCE. PT STATES THAT HE IS GOING HOME TOMORROW. NO NEURO DEFICITS NOTED EXCEPT FOR LEFT FINGER NUMBNESS.
[2021-10-21 19:10] VITALS: BP 166/87
--- NOTE | 2021-10-21 20:32 | NUR ---
APPROX. 1814 PATIENT WAS NOT ON TELEMETRY MONITORING. ASSESSED PATIENT AND HIS TELEMETRY UNIT WAS LYING IN THE BED BESIDE HIM. WHEN TOLD IT WOULD BE REATTACHED, HE SAID, "UH UH ,NO. I AM DISCHARGED TOMORROW." THIS NURSE INFORMED THE PATIENT THAT HE WOULD REQUIRE CARDIAC MONITORING UNTIL HE IS DISCHARGED. THE PATIENT VEHEMENTLY REFUSED TO BE REATTACHED TO TELEMETRY.
--- NOTE | 2021-10-21 20:53 | NUR ---
JAIRO DTO PATIENT STATED HE PULLED IV AND TELEMETRY STATED HE DOESNT NEED THEM, AND THAT HE SPOKE TO MD AND GOING HOME TOMORROW,
--- NOTE | 2021-10-21 22:20 | NUR ---
NEW IV SITE ON RT FA G 22, PATENT FLUSHES WELL.
[2021-10-22] VITALS (10 sets, daily range): BP systolic 146–196; BP diastolic 90–120
--- NOTE | 2021-10-22 | NUR ---
PATIENT AWAKE AT THIS TIME, ASSISTED PATIENT TO STAND UP AND FIXED HIS BED, PATIENT CUURENTLY RESTING EYES CLOSED, CALL LIGHT IN REACH.
--- NOTE | 2021-10-22 04:00 | NUR ---
PATIENT RESTING IN BED, DENIES PAIN OR DISCOMFORTS AT THIS TIME, BREATING UNLABORED, CALL LIGHT IN REACH.
--- NOTE | 2021-10-22 07:32 | NUR ---
SHIFT CHANGE REPORT, PT AWAKE ALERT AND ORIENTED SITTING UP IN BED AND GETTING DRESSED TO GO HOME, DENIED PAIN AND DISCOMFORT AT THIS TIME. EDUCATED ON CURRENT CONDITION AND ADVISED TO STAY HERE UNTIL MD COMES AND EVALUATES HIM, BP ELEVATED AT THIS TIME, MEDS GIVEN, PT AGREES TO STAY, CALL CLEMONS IN REACH, BED LOCKED IN LOWEST POSITION, WILL CONTINUE TO MONITOR.
--- NOTE | 2021-10-22 10:24 | NUR ---
PT WAS DRESSED AND ANXIOUS TO GO HOME THIS AM BUT AFTER EXPLAINING THE POSSIBLE RISXS OF HIS CONDITION HE AGREED TO STAY AND BE TREATED.
--- NOTE | 2021-10-22 11:52 | NUR ---
SITTING UP IN RECLINER AT THIS TIME, IVF INFUSING, BP BEING MONITORED AND IMPROVING DOCUMENTED IN VITAL SIGNS, CALL CLEMONS IN REACH.
--- NOTE | 2021-10-22 16:49 | NUR ---
TRANSPORTED OFF UNIT EARLIER FOR ECHO PROCEDURE AND RETURNED TO UNIT VIA W/C, SETTLED IN RECLINER, ORAL FLUIDS OFFERED, IVF INFUSING, CALL CLEMONS IN REACH.
--- NOTE | 2021-10-22 20:57 | NUR ---
PT ASSESSMENT AND CIWA COMPLETED AND MEDICATIONS ADMINISTERED AT THIS TIME. PT IS SMILING AND DENIES DISTRESSES AT THIS TIME. CALL LIGHT AT SIDE, ENCOURAGED HIM TO CALL NEEDS ARISE, VERBALIZED UNDERSTADING.
[2021-10-23 00:17] VITALS: BP 156/99
--- NOTE | 2021-10-23 00:40 | NUR ---
PT SLEEPING SOUNDLY, NO S/O DISTRESS NOTED. CALL LIGHT AT BEDSIDE. RESP EVEN AND NON-LABORED.
--- NOTE | 2021-10-23 03:30 | NUR ---
PT SLEEPING, NO S/O DISTRESS NOTED. URINAL EMPTIED OF 400CC OF CLEAR YELLOW URINE. CALL LIGHT AT SIDE.
[2021-10-23 04:20] VITALS: BP 155/93
--- NOTE | 2021-10-23 05:50 | NUR ---
PT SLEEPING, NO S/O DISTRESS NOTED. CALL LIGHT AT SIDE.
[2021-10-23 06:33] VITALS: BP 150/91
--- NOTE | 2021-10-23 07:43 | NUR ---
BEDSIDE REPORT GIVEN AT SHIFT CHANGE WITH HS RN, PT AWAKE ALERT AND ORIENTED RESTING IN BED, DENIES PAIN/DISCOMFORT, REPORTED HE HAD BM EARLIER, EXPRESSES APPRECIATION FOR CARE HE HAS BEEN GIVEN HERE, TELE MONITOR IN PLACE, CALL CLEMONS IN REACH AND BED LOCKED IN LOWEST POSITION.
[2021-10-23 08:30] VITALS: BP 158/109
[2021-10-23 08:37] VITALS: BP 138/100
[2021-10-23 11:33] VITALS: BP 129/90
[2021-10-23] MEDS ORDERED: PLAVIX75 MG PO (12:41)
[2021-10-23] MEDS ORDERED: ADLT ASA LOW81 MG PO (12:41)
[2021-10-23] MEDS ORDERED: COZAAR100 MG PO (12:41)
[2021-10-23] MEDS ORDERED: ATORVASTATIN CA40 MG PO (12:41)
[2021-10-23] MEDS ORDERED: AMLODIPINE BESY10 MG PO (12:42)
[2021-10-23] MEDS ORDERED: HYDROCHLOROT25 MG PO (12:42)
--- NOTE | 2021-10-23 14:30 | NUR ---
Discharge instructions given. Patient verbalizes understanding of same. Discharged in fair condition via Wheelchair to Home with friend. All belongings sent with pt.
== END 2021-10-23 14:28 | disposition home health service (06) | DRG 66 ==
LOC: ED 07:41 → ED-I 10:02 → MS2 10:15 → ED 10:15 → MS2 10-19 20:58
PROVIDERS: Internal Medicine; ADMIT Internal Medicine; ATTEND Internal Medicine
DX: I63.81 Other cerebral infarction due to occlusion or stenosis of small artery (principal); R20.2 Paresthesia of skin; R47.81 Slurred speech; R29.703 NIHSS score 3; I10 Essential (primary) hypertension; E78.5 Hyperlipidemia, unspecified; T46.5X6A Underdosing of other antihypertensive drugs, initial encounter; F10.20 Alcohol dependence, uncomplicated; Z91.128 Patient's intentional underdosing of medication regimen for other reason; Z87.891 Personal history of nicotine dependence; Z86.73 Personal history of transient ischemic attack (TIA), and cerebral infarction without residual deficits; Z20.822 Contact with and (suspected) exposure to COVID-19
CPT/HCPCS: G0378; J1650; Q3014

== ENCOUNTER 2021-11-18 11:28 | Emergency (ER) | payer MEDICARE, MEDICAID ==
[~2021-11-18] VITALS: Ht 167.6 cm; Wt 81.8 kg
[~2021-11-18 11:28] MED LIST changes: +AMLODIPINE BESY10 MG PO; +ATORVASTATIN CA40 MG PO; +BP MED; +COZAAR100 MG PO; +HYDROCHLOROT25 MG PO; +PLAVIX75 MG PO
[2021-11-18 12:10] LABS: HEMATOCRIT 46.8 % (39.0-50.0); HEMOGLOBIN 15.2 g/dl (14.0-18.0); IMMATURE GRANULOCYTES 0.2 % (0.0-5.0); MEAN CELL VOLUME 91.2 fL CALC (80.0-100.0); MEAN CORPUSCULAR HGB 29.6 pG CALC (26.0-32.0); MEAN CORPUSCULAR HGB CONC 32.5 g/dL CAL (32.0-36.0); NEUT# 3.71 thou/uL (1.82-7.42); RED BLOOD COUNT 5.13 mill/uL (4.70-6.10); RED CELL DISTRI WIDTH 14.7 % (11.5-15.5)
[2021-11-18 12:23] LABS: ALBUMIN 4.1 g/dL (3.2-5.0); ALKALINE PHOSPHATASE 80 u/l (38-126); ANION GAP 19 (6-22 (CALC)); BILIRUBIN, TOTAL 0.8 mg/dL (0.0-1.4); BUN 13 mg/dL (8-23); BUN/CREATININE RATIO 11 (12-20 (CALC)); CARBON DIOXIDE 20 mmol/l (22-30); CHLORIDE 104 mmol/l (95-108); CREATININE 1.2 mg/dL (0.7-1.3); GFR FOR AFR.AMER. > 60 ML/MIN (>=60 (CALC)); GFR OTHER RACES 60 ML/MIN (>=60 (CALC)); POTASSIUM 4.2 mmol/l (3.5-5.1); SGOT/AST 33 u/l (19-48); SODIUM 140 mmol/l (137-146); TOTAL PROTEIN 7.6 g/dL (6.3-8.2)
[2021-11-18 14:58] VITALS: BP 125/78
== END 2021-11-18 15:19 | disposition home or self-care (01) ==
LOC: ED 11:28
PROVIDERS: Family Medicine
DX: I69.322 Dysarthria following cerebral infarction (principal); I69.354 Hemiplegia and hemiparesis following cerebral infarction affecting left non-dominant side; I10 Essential (primary) hypertension; E78.5 Hyperlipidemia, unspecified; F17.210 Nicotine dependence, cigarettes, uncomplicated

== ENCOUNTER 2021-12-03 07:31 | Emergency (ER) | payer MEDICARE, MEDICAID ==
[2021-12-03] VITALS (15 sets, daily range): BP systolic 147–181; BP diastolic 86–119
[~2021-12-03] VITALS: Ht 167.6 cm; Wt 84.0 kg
[2021-12-03 08:37] LABS: HEMATOCRIT 43.6 % (39.0-50.0); HEMOGLOBIN 14.4 g/dl (14.0-18.0); IMMATURE GRANULOCYTES 0.4 % (0.0-5.0); MEAN CELL VOLUME 91.2 fL CALC (80.0-100.0); MEAN CORPUSCULAR HGB 30.1 pG CALC (26.0-32.0); NEUT# 6.48 thou/uL (1.82-7.42); RED BLOOD COUNT 4.78 mill/uL (4.70-6.10); RED CELL DISTRI WIDTH 14.5 % (11.5-15.5)
[2021-12-03 09:01] LABS: ALBUMIN 3.8 g/dL (3.2-5.0); ALKALINE PHOSPHATASE 66 u/l (38-126); BUN 13 mg/dL (8-23); BUN/CREATININE RATIO 12 (12-20 (CALC)); CHLORIDE 107 mmol/l (95-108); CREATININE 1.1 mg/dL (0.7-1.3); GFR FOR AFR.AMER. > 60 ML/MIN (>=60 (CALC)); GFR OTHER RACES > 60 ML/MIN (>=60 (CALC)); POTASSIUM 4.1 mmol/l (3.5-5.1); SGOT/AST 23 u/l (19-48); SODIUM 142 mmol/l (137-146); TOTAL PROTEIN 7.1 g/dL (6.3-8.2)
[2021-12-03 09:15] LABS: ANION GAP 13 (6-22 (CALC)); BILIRUBIN, TOTAL 1.5 mg/dL (0.0-1.4); CARBON DIOXIDE 26 mmol/l (22-30)
[2021-12-03] MEDS ORDERED: TRAMADOL HYDROC50 M1 PO (10:06)
== END 2021-12-03 14:00 | disposition home or self-care (01) ==
LOC: ED 07:31
PROVIDERS: Family Medicine
DX: R53.1 Weakness (principal); I10 Essential (primary) hypertension; E78.5 Hyperlipidemia, unspecified; F17.200 Nicotine dependence, unspecified, uncomplicated; Z86.73 Personal history of transient ischemic attack (TIA), and cerebral infarction without residual deficits; Z91.81 History of falling